=== PATIENT | male | born 1955 | race Two or more races ===

== ENCOUNTER 2018-05-17 19:41 | Emergency (ER) | payer SELFPAY ==
[~2018-05-17] VITALS: Ht 167.6 cm; Wt 74.8 kg
--- NOTE | 2018-05-17 19:41 | NUR ---
[id number] FOR RT SHOULDER PAIN S/P TRIP AND FALL X TODAY, NO KO. NAD NOTED. PT AAO X4, VSS. RR EVEN AND UNLABORED. AT BEDSIDE FOR EVAL.
[2018-05-17] MEDS ORDERED: MORPHINE SULFATE INJ 4 MG/ML DISP.SYRIN ONE (19:55)
[2018-05-17] MEDS ORDERED: ONDANSETRON HCL/PF 4 MG/2 ML VIAL ONE (19:56)
[2018-05-17] MEDS ORDERED: MORPHINE SULFATE INJ 2 MG/ML DISP.SYRIN IV ONE (20:00)
[2018-05-17] MEDS ORDERED: ONDANSETRON HCL/PF 4 MG/2 ML VIAL IV ONE (20:00)
--- NOTE | 2018-05-17 20:01 | NUR ---
MORPHINE 4MG AND ZOFRAN 4MG GIVEN PER MD ORDER
[2018-05-17] MEDS ORDERED: PROPOFOL 40 ML IV ONE (20:20)
--- NOTE | 2018-05-17 20:25 | NUR ---
PT SIGNED CONSENT FOR SHOULDER REDUCTION WITH MODERATE SEDATION
[2018-05-17] MEDS ORDERED: IV NS 0.9% 1,000 ML BAG IV ONE (20:30)
[2018-05-17] MEDS ORDERED: PROPOFOL 200 MG/20 ML VIAL IV ONE (20:30)
[2018-05-17] MEDS ORDERED: FENTANYL PF 100MCG/2ML AMPUL ONE (20:34)
--- NOTE | 2018-05-17 20:46 | NUR ---
SHOULDER REDUCTION DONE BY DR OGLESBY
[2018-05-17] MEDS ORDERED: FENTANYL PF 100MCG/2ML AMPUL IV ONE (21:00)
[2018-05-17 21:13] VITALS: BP 170/84
== END 2018-05-17 21:15 | disposition home or self-care (01) ==
LOC: ER 19:43
DX: S43.084A Other dislocation of right shoulder joint, initial encounter (principal); W01.0XXA Fall on same level from slipping, tripping and stumbling without subsequent striking against object, initial encounter; Y93.89 Activity, other specified; Y92.89 Other specified places as the place of occurrence of the external cause; Y99.8 Other external cause status
CPT/HCPCS: 73020; 73030-TC; A4606; J2270; J2405; J2704; J3010; Z7610